=== PATIENT | female | born 1940 | race Caucasian/White ===

== ENCOUNTER 2018-08-28 09:17 | Emergency (ER) | payer MEDICARE ==
[2018-08-28 09:29] VITALS: BP 105/43
--- NOTE | 2018-08-28 10:59 | UC ---
Lower Extremity/Ankle HPI - HPI Summary HPI Summary: Patient was walking 5 days ago when she twisted her right ankle. She states she has had no pain however she did notice bruising to her toes and her ankle over the past day or 2 and felt she should get checked. She is an insulin- dependent diabetic so she states she has slightly decreased sensation of her extremities normally. - History of Current Complaint Chief Complaint: UCLowerExtremity Stated Complaint: ANKLE INJURY Time Seen by Provider: 08/28/18 10:04 Hx Obtained From: Patient ?: No Onset/Duration: Sudden Onset Severity Initially: Mild Severity Currently: Mild Pain Intensity: 3 Aggravating Factor(s): Nothing Alleviating Factor(s): Nothing Able to Bear Weight: Yes - Allergies/Home Medications Allergies/Adverse Reactions: Allergies Allergy/AdvReac Type Severity Reaction Status Date / Time No Known Allergies Allergy Verified 08/28/18 09:29 Home Medications: Home Medications Clopidogrel TAB* [Plavix TAB*] 75 mg PO DAILY 08/28/18 [History Confirmed ] Losartan TAB* [Cozaar TAB*] 50 mg PO DAILY 08/28/18 [History Confirmed 08/28/18] Metoprolol Tartrate TAB* [Lopressor TAB*] 25 mg PO DAILY 08/28/18 [History Confirmed 08/28/18] Pantoprazole TAB * [Protonix TAB*] 40 mg PO DAILY 08/28/18 [History Confirmed ] Rosuvastatin Calcium [Crestor] 40 mg PO DAILY 08/28/18 [History Confirmed ] Sertraline* [Zoloft*] 25 mg PO DAILY 08/28/18 [History Confirmed 08/28/18] raNITIdine HCl [Ranitidine HCl] 150 mg PO BID 08/28/18 [History Confirmed ] PMH/Surg Hx/FS Hx/Imm Hx Previously Healthy: Yes Endocrine History: Diabetes - Surgical History Surgical History: Yes Surgery Procedure, Year, and Place: hyster - Family History Known Family History: Positive: Non-Contributory - Social History Occupation: Retired Alcohol Use: None Substance Use Type: None Smoking Status (MU): Never Smoked Tobacco Review of Systems All Other Systems Reviewed And Are Negative: Yes Skin: Positive: Bruising - Patient noted she had bruising to her toes and ankles so thought she should get her ankle checked. Motor: Positive: Negative Neurovascular: Positive: Decreased Sensation - Patient states she normally has decreased sensation or extra remedies due to diabetes. She denies any pain. Musculoskeletal: Positive: Negative Neurological: Positive: Negative Psychological: Positive: Negative Is Patient Immunocompromised?: No Physical Exam Triage Information Reviewed: Yes Appearance: Well-Appearing, No Pain Distress, Well-Nourished Vital Signs: Initial Vital Signs Temp 98 F 08/28/18 09:26 Pulse 57 08/28/18 09:26 Resp 16 08/28/18 09:26 BP 105/43 08/28/18 09:26 Pulse Ox 100 08/28/18 09:26 Vital Signs Reviewed: Yes Musculoskeletal: Positive: Strength Intact, ROM Intact, No Edema Neurological: Positive: Alert, Muscle Tone Normal Psychological Exam: Normal Skin: Positive: Other - Patient has mild bruising to the base of her toes on the right foot and mild bruising to her posterior ankle. Good peripheral pulses neuro sensation capillary refill. Ankle is stable. Nontender on palpation. Lower Extremity Course/Dx - Course Course Of Treatment: Right Ankle: REPORT AND IMPRESSION: #. Bone density appears decreased throughout the [id number] at the ankle and foot. #. Capsular avulsion fracture at the dorsal margin of the head of the talus with only minimal displacement. Suggestion of a potential nondisplaced horizontal avulsion fracture at the lateral malleolus at the level of the ankle mortise reference the AP view of the ankle. Chronic ossicles inferior to the medial malleolus without concern. #. Congruent ankle mortise and normal articular alignment throughout the remainder of the [id number] at the ankle and foot. #. 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 #. Moderately large Achilles tendon insertion enthesophyte and small plantar fascia origin enthesophyte. #. Soft tissue swelling most prominent about the ankle and over the dorsum of the transverse tarsal joint. Right Foot:REPORT AND IMPRESSION: #. Bone density appears decreased throughout the [id number] at the ankle and foot. #. Capsular avulsion fracture at the dorsal margin of the head of the talus with only minimal displacement. Suggestion of a potential nondisplaced horizontal avulsion fracture at the lateral malleolus at the level of the ankle mortise reference the AP view of the ankle. Chronic ossicles inferior to the medial malleolus without concern. #. Congruent ankle mortise and normal articular alignment throughout the remainder of the [id number] at the ankle and foot. #. 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 #. Moderately large Achilles tendon insertion enthesophyte and small plantar fascia origin enthesophyte. #. Soft tissue swelling most prominent about the ankle and over the dorsum of the transverse tarsal joint. After discussion with Dr. Gaona the patient is going to be placed in a cam boot. She is from [place] and she is going back on Saturday so she is going to follow-up with her orthopedist on Saturday. If she has any difficulties in between then she is to follow-up with the local orthopedist on-call, Dr. Estes. She is to elevate as much as possible and limit ambulation. The patient is pain-free when she walks. - Differential Dx/Diagnosis Provider Diagnosis: Avulsion fracture of ankle Discharge - Sign-Out/Discharge Documenting (check all that apply): Patient Departure All imaging exams completed and their final reports reviewed: Yes - Discharge Plan Condition: Fair Disposition: HOME Patient Education Materials: Ankle Fracture (DC) Referrals: No Primary Care Phys,NOPCP [Primary Care Provider] - Estefani Estes MD [Medical Doctor] - Additional Instructions: Keep the boot on until you're seen by her orthopedist on Saturday. Elevate as much as possible. Follow-up with the local orthopedist if any problems over the next 2 days. - Billing Disposition and Condition Condition: FAIR Disposition: Home - Attestation Statements Provider Attestation: I was available for consult. This patient was seen by the [facility]. The patient was not presented to, seen by, or examined by me. -Octaviano
== END 2018-08-28 11:13 | disposition home or self-care (01) ==
LOC: UCEAST 09:17
DX: S92.151A Displaced avulsion fracture (chip fracture) of right talus, initial encounter for closed fracture (principal); X50.0XXA Overexertion from strenuous movement or load, initial encounter; Y92.9 Unspecified place or not applicable; E10.9 Type 1 diabetes mellitus without complications; Z79.4 Long term (current) use of insulin
CPT/HCPCS: 99202; G0463